=== PATIENT | female | born 1975 | race Caucasian/White ===

== ENCOUNTER 2016-04-21 21:06 | Emergency (ER) | payer BC, OTHER ==
[2016-04-21 22:20] VITALS: BMI 47.2
[2016-04-21 22:34] LABS: HEMATOCRIT 37.8 % (34.0-47.0); MEAN CORPUSCULAR HEMOGLOBIN 29.1 pg (27.0-31.0); MEAN CORPUSCULAR HGB CONC 32.8 g/dL (33.0-37.0); RED CELL DISTRIBUTION WIDTH 14.8 % (11.5-14.5); WHITE BLOOD COUNT 9.7 K/uL (4.8-10.8)
[2016-04-21 22:36] LABS: MEAN CELL VOLUME 88.7 fl (81.0-99.0)
[2016-04-21 22:41] LABS: RBC URINE 3 /hpf (0-3); URINE BACTERIA OCC (<OCC); URINE BILIRUBIN NEGATIVE (NEGATIVE); URINE BLOOD SMALL (NEGATIVE); URINE COLOR YELLOW (YELLOW); URINE GLUCOSE (UA) NEG (Normal); URINE KETONE 80 mg/dL (NEGATIVE); URINE LEUKOCYTE ESTERASE NEG Leu/uL (Negative); URINE PROTEIN 30 mg/dL (NEGATIVE); URINE UROBILINOGEN 0.2-1.0 mg/dL (0.2-1.0); WBC URINE 3 /hpf (0-5)
[2016-04-21 22:56] LABS: ALKALINE PHOSPHATASE 59 U/L (38-126); ALT/SGPT 24 U/L (9-52); AST/SGOT 30 U/L (14-36); BILIRUBIN,TOTAL 0.9 mg/dl (0.2-1.3); BLOOD UREA NITROGEN 12 mg/dl (7-17); CALCIUM 8.4 mg/dL (8.4-10.2); CARBON DIOXIDE 20 mmol/L (22-30); CHLORIDE 106 mmol/L (98-107); GFR AFRICAN-AMERICAN > 60; GLUCOSE,RANDOM 85 mg/dL (65-105); SODIUM 135 mmol/l (132-148); TOTAL PROTEIN 6.6 G/DL (6.3-8.2)
[2016-04-21 22:58] LABS: POTASSIUM 3.9 MMOL/L (3.6-5.0)
[2016-04-21] MEDS: Lactated Ringer's 1,000 ML IV SCH ×2 (23:06→23:08)
== END 2016-04-22 01:05 | disposition home or self-care (01) ==
LOC: H.EROB2 21:06
DX: O26.93 Pregnancy related conditions, unspecified, third trimester (principal); O21.0 Mild hyperemesis gravidarum; E86.0 Dehydration; Z3A.31 31 weeks gestation of pregnancy
CPT/HCPCS: 80053; 81003; 85027; 96360; 96361; 99283; J7120